=== PATIENT | female | born 1940 | race Caucasian/White ===

== ENCOUNTER → 2017-02-17 | Outpatient (CLI) | payer OTHER ==
--- NOTE | 2017-02-17 16:26 | KCIC ---
Fam radiograph of the orbits 02/17/2017 CLINICAL HISTORY: History of surgery involving the left eye with possible placement of metal plate. Pre-MRI evaluation. A Fam digital radiograph of the orbits was obtained. 4 dental implants are seen within the anterior mandible. The patient is otherwise edentulous. A 1.8 cm curvilinear metallic density overlies the superior aspect of the left orbit. The paranasal sinuses are essentially clear. No fracture is seen. IMPRESSION: A curvilinear metallic density is seen within the superior left orbit. Electronically signed by: Cristofer Morton MD (02/17/2017 4:23 PM)
== END | disposition home or self-care (01) ==
LOC: KCIC MRI 15:46 → EDSEX 16:15
PROVIDERS: ATTEND Orthopaedic Surgery Sports Medicine
DX: Z13.5 Encounter for screening for eye and ear disorders (principal)
CPT/HCPCS: 70030